=== PATIENT | female | born 1995 | race Caucasian/White ===

== ENCOUNTER 2020-12-25 16:08 | Emergency (ER) | payer SELFPAY ==
[~2020-12-25] VITALS: Ht 154.9 cm; Wt 47.0 kg
[2020-12-25] MEDS ORDERED: ACETAMINOPHEN 325MG TABLET PO STA (16:50)
[2020-12-25 17:17] LABS: BASOPHILS % 0.3 % (0.0-2.0); EOSINOPHILS % 0.5 % (0.0-5.0); HEMOGLOBIN. 12.8 g/dL (12.0-16.0); LYMPHOCYTES % 14.9 % (20.0-50.0); MEAN PLATELET VOLUME 7.5 fl (7.4-10.4); MONOCYTES % 6.5 % (2.0-8.0); NEUTROPHILS % 77.8 % (40.0-76.0); PLATELET 251 x1000/uL (130-400); RED BLOOD CELL COUNT 4.13 mill/uL (4.2-5.4); RED CELL DISTRIBUTION WIDTH 13.1 % (11.6-14.6)
[2020-12-25 17:22] LABS: CHLORIDE 106 mEq/L (98-107); INR 1.1; PROTHROMBIN TIME 11.6 sec (9.6-11.0)
[2020-12-25 18:45] VITALS: BP 104/66
== END 2020-12-25 20:43 | disposition home or self-care (01) ==
LOC: ER 16:08
DX: O99.891 Other specified diseases and conditions complicating pregnancy (principal); M54.59 Other low back pain; R10.30 Lower abdominal pain, unspecified; R07.89 Other chest pain; Z3A.08 8 weeks gestation of pregnancy; V49.49XA Driver injured in collision with other motor vehicles in traffic accident, initial encounter; Y93.89 Activity, other specified; Y92.488 Other paved roadways as the place of occurrence of the external cause
CPT/HCPCS: 36415; 76801; 80053; 84484; 85025; 86850; 86900; 93005; 99285

== ENCOUNTER 2021-06-27 15:24 | Emergency (ER) | payer MEDICAID ==
[~2021-06-27] VITALS: Ht 157.5 cm; Wt 73.0 kg
[2021-06-27 16:51] LABS: CHLORIDE 109 mEq/L (98-107)
[2021-06-27 16:52] LABS: BASOPHILS % 0.5 % (0.0-2.0); EOSINOPHILS % 0.5 % (0.0-5.0); HEMATOCRIT. 37.3 % (36.0-48.0); HEMOGLOBIN. 12.5 g/dL (12.0-16.0); LYMPHOCYTES % 15.6 % (20.0-50.0); MEAN CORPUSCULAR VOLUME 89.3 fL (81.0-99.0); MONOCYTES % 8.6 % (2.0-8.0); NEUTROPHILS % 74.8 % (40.0-76.0); RED BLOOD CELL COUNT 4.18 mill/uL (4.2-5.4); RED CELL DISTRIBUTION WIDTH 13.6 % (11.6-14.6)
[2021-06-27 18:02] LABS: MEAN PLATELET VOLUME 8.6 fl (7.4-10.4); PLATELET 240 x1000/uL (130-400)
[2021-06-27] MEDS ORDERED: SODIUM CHLORIDE 0.9% 1,000 ML IV ONE (19:15)
[2021-06-28 01:00] VITALS: BP 101/66
[2021-06-28] MEDS ORDERED: IOHEXOL-350 100 ML BOTTLE ONE (10:10)
== END 2021-06-28 01:15 | disposition home or self-care (01) ==
LOC: ER 15:57
DX: O26.893 Other specified pregnancy related conditions, third trimester (principal); R07.89 Other chest pain; Z3A.35 35 weeks gestation of pregnancy
CPT/HCPCS: 36415; 71275; 80053; 83880; 84484; 85025; 85379; 93005; 93970; 96360; 99285; J7030; Q9967